=== PATIENT | female | born 1945 | race Caucasian/White ===

== ENCOUNTER 2017-07-23 10:22 | Emergency (ER) | payer MEDICARE ==
[2017-07-23] MEDS ORDERED: SODIUM CHLORIDE 0.9% 500 ML IV STA (10:46)
--- NOTE | 2017-07-23 10:50 | ED ---
General Adult HPI - General Chief complaint: Headache Stated complaint: Headache,Dizziness Time Seen by Provider: 07/23/17 10:37 Source: patient, RN notes reviewed, old records reviewed Mode of arrival: ambulatory Limitations: no limitations - History of Present Illness Initial comments: 72-year-old female with history of hypertension presents for elevated blood pressure. Patient is currently on metoprolol 25 mg twice a day and lisinopril 10 mg twice a day. She states that over the past several weeks she has had complaints of nausea, dizziness and generalized weakness. She has been checking her blood pressure and has had readings as high as 190s systolic. Patient states her episodes of elevated blood pressure are in her mid. She has been taking her pressure on several occasions daily. She does have additional past medical history of being prediabetic and has been complaining of polyuria and increased urinary urgency. Patient had some right-sided upper abdominal and right lateral chest pain several evenings ago which was worse with movement and relieved by repositioning. No other chest pain. She also has had a mild left occipital headache which is worse with movement. No Significant headache at the time my evaluation. No vomiting or diarrhea. She's had some mild nausea. - Related Data Home Medications Medication Instructions Recorded Confirmed Ascorbic Acid [Vitamin C] 1,000 mg PO DAILY 07/23/17 07/23/17 Calcium Carbonate [Calcium] 1,200 mg PO DAILY 07/23/17 07/23/17 Cholecalciferol [Vitamin D3] 5,000 unit PO DAILY 07/23/17 07/23/17 Cyanocobalamin (Vitamin B-12) 1,000 mcg PO DAILY 07/23/17 07/23/17 [Vitamin B-12] Fluticasone Nasal [place] [Flonase 1 spray EA NOSTRIL DAILY PRN 07/23/17 07/23/17 Nasal [place]] Lisinopril [Zestril] 10 mg PO BID 07/23/17 07/23/17 Lisinopril [Zestril] 10 mg PO DAILY PRN 07/23/17 07/23/17 Magnesium Oxide [Sanders] 500 mg PO DAILY 07/23/17 07/23/17 Metoprolol Tartrate 25 mg PO BID 07/23/17 07/23/17 Metoprolol Tartrate [Lopressor] 25 mg PO DAILY@1200 PRN 07/23/17 07/23/17 Super K 1 tab PO DAILY 07/23/17 07/23/17 Allergies Allergy/AdvReac Type Severity Reaction Status Date / Time morphine Allergy Itching Verified 07/23/17 10:29 sulfamethoxazole Allergy Rash/Hives Verified 07/23/17 11:32 [From Bactrim] trimethoprim [From Bactrim] Allergy Rash/Hives Verified 07/23/17 11:32 Review of Systems ROS Statement: Those systems with pertinent positive or pertinent negative responses have been documented in the HPI. ROS Other: All systems not noted in ROS Statement are negative. Past Medical History Past Medical History: Hypertension History of Any Multi-Drug Resistant Organisms: None Reported Past Surgical History: No Surgical Hx Reported Past Psychological History: No Psychological Hx Reported Smoking Status: Never smoker Past Alcohol Use History: Occasional Past Drug Use History: None Reported General Exam Limitations: no limitations General appearance: alert, in no apparent distress Head exam: Present: atraumatic, normocephalic Eye exam: Present: normal appearance, PERRL ENT exam: Present: mucous membranes dry Neck exam: Present: normal inspection, tenderness (Mild left-sided paraspinal cervical tenderness.). Absent: meningismus Respiratory exam: Present: normal lung sounds bilaterally. Absent: respiratory distress, wheezes Cardiovascular Exam: Present: regular rate, normal rhythm GI/Abdominal exam: Present: soft. Absent: distended, tenderness Extremities exam: Present: normal inspection, normal capillary refill. Absent: pedal edema Back exam: Present: normal inspection, full ROM. Absent: tenderness Neurological exam: Present: alert, oriented X3, CN II-XII intact. Absent: motor sensory deficit Psychiatric exam: Present: normal affect, normal mood Skin exam: Present: warm, dry, intact. Absent: cyanosis, diaphoretic Course Vital Signs 07/23/17 10:26 Temperature 98.2 F Pulse Rate 63 Respiratory 20 Rate Blood Pressure 166/84 O2 Sat by Pulse 98 Oximetry Medical Decision Making - Medical Decision Making 72-year-old female presenting for evaluation of elevated blood pressure and a variety of minor complaints. Patient did take 2 of her lisinopril this morning and 2 of her metoprolol, blood pressure is down trending in the emergency department. Exam unremarkable. Laboratory studies including CBC, CMP, urinalysis is all unremarkable. Patient will continue to take 20 mg of lisinopril in the morning and 10 at night. She will maintain her metoprolol dose at 25 twice a day. She is given outpatient primary care physician follow- up. She is request follow-up for [employer] and she had some small amount of vaginal bleeding which is resolved, however she would like to follow-up with a telephone order dispatcher. - Lab Data Result diagrams: 07/23/17 10:57 07/23/17 10:57 Lab Results 07/23/17 07/23/17 07/23/17 Range/Units 10:57 10:57 10:57 WBC 6.5 (3.8-10.6) k/uL RBC 4.61 (3.80-5.40) m/uL Hgb 14.3 (11.4-16.0) gm/dL Hct 41.7 (34.0-46.0) % MCV 90.5 (80.0-100.0) fL MCH 31.1 (25.0-35.0) pg MCHC 34.4 (31.0-37.0) g/dL RDW 12.9 (11.5-15.5) % Plt Count 299 (150-450) k/uL Neutrophils % 52 % Lymphocytes % 37 % Monocytes % 6 % Eosinophils % 2 % Basophils % 1 % Neutrophils # 3.4 (1.3-7.7) k/uL Lymphocytes # 2.4 (1.0-4.8) k/uL Monocytes # 0.4 (0-1.0) k/uL Eosinophils # 0.1 (0-0.7) k/uL Basophils # 0.0 (0-0.2) k/uL PT (9.0-12.0) sec INR (<1.2) APTT (22.0-30.0) sec Sodium 142 (137-145) mmol/L Potassium 5.0 (3.5-5.1) mmol/L Chloride 104 (98-107) mmol/L Carbon Dioxide 26 (22-30) mmol/L Anion Gap 12 mmol/L BUN 17 (7-17) mg/dL Creatinine 0.60 (0.52-1.04) mg/dL Est GFR (CKD-EPI)AfAm >90 (>60 ml/min/1.73 sqM) Est GFR (CKD-EPI)NonAf >90 (>60 ml/min/1.73 sqM) Glucose 95 (74-99) mg/dL Calcium 10.0 (8.4-10.2) mg/dL Magnesium 2.1 (1.6-2.3) mg/dL Total Bilirubin 0.6 (0.2-1.3) mg/dL AST 31 (14-36) U/L ALT 29 (9-52) U/L Alkaline Phosphatase 79 (38-126) U/L Total Creatine Kinase 35 (30-135) U/L CK-MB (CK-2) 0.4 (0.0-2.4) ng/mL CK-MB (CK-2) Rel Index 1.1 Troponin I <0.012 (0.000-0.034) ng/mL Total Protein 7.8 (6.3-8.2) g/dL Albumin 4.7 (3.5-5.0) g/dL Urine Color Urine Appearance (Clear) Urine pH (5.0-8.0) Ur Specific [place] (1.001-1.035) Urine Protein (Negative) Urine Glucose (UA) (Negative) Urine Ketones (Negative) Urine Blood (Negative) Urine Nitrite (Negative) Urine Bilirubin (Negative) Urine Urobilinogen (<2.0) mg/dL Ur Leukocyte Esterase (Negative) 07/23/17 07/23/17 Range/Units 10:57 10:57 WBC (3.8-10.6) k/uL RBC (3.80-5.40) m/uL Hgb (11.4-16.0) gm/dL Hct (34.0-46.0) % MCV (80.0-100.0) fL MCH (25.0-35.0) pg MCHC (31.0-37.0) g/dL RDW (11.5-15.5) % Plt Count (150-450) k/uL Neutrophils % % Lymphocytes % % Monocytes % % Eosinophils % % Basophils % % Neutrophils # (1.3-7.7) k/uL Lymphocytes # (1.0-4.8) k/uL Monocytes # (0-1.0) k/uL Eosinophils # (0-0.7) k/uL Basophils # (0-0.2) k/uL PT 10.1 (9.0-12.0) sec INR 1.0 (<1.2) APTT 22.3 (22.0-30.0) sec Sodium (137-145) mmol/L Potassium (3.5-5.1) mmol/L Chloride (98-107) mmol/L Carbon Dioxide (22-30) mmol/L Anion Gap mmol/L BUN (7-17) mg/dL Creatinine (0.52-1.04) mg/dL Est GFR (CKD-EPI)AfAm (>60 ml/min/1.73 sqM) Est GFR (CKD-EPI)NonAf (>60 ml/min/1.73 sqM) Glucose (74-99) mg/dL Calcium (8.4-10.2) mg/dL Magnesium (1.6-2.3) mg/dL Total Bilirubin (0.2-1.3) mg/dL AST (14-36) U/L ALT (9-52) U/L Alkaline Phosphatase (38-126) U/L Total Creatine Kinase (30-135) U/L CK-MB (CK-2) (0.0-2.4) ng/mL CK-MB (CK-2) Rel Index Troponin I (0.000-0.034) ng/mL Total Protein (6.3-8.2) g/dL Albumin (3.5-5.0) g/dL Urine Color Light Yellow Urine Appearance Clear (Clear) Urine pH 6.5 (5.0-8.0) Ur Specific [place] 1.003 (1.001-1.035) Urine Protein Negative (Negative) Urine Glucose (UA) Negative (Negative) Urine Ketones Negative (Negative) Urine Blood Negative (Negative) Urine Nitrite Negative (Negative) Urine Bilirubin Negative (Negative) Urine Urobilinogen <2.0 (<2.0) mg/dL Ur Leukocyte Esterase Negative (Negative) Disposition Clinical Impression: Hypertension Disposition: HOME SELF-CARE Condition: Good Instructions: Hypertension (ED) Is patient prescribed a controlled substance at d/c from ED?: No Referrals: Nonstaff,Physician [REFERRING] - 1-2 days Ashley Avendaño DO [Doctor of Osteopathic Medicine] - 1-2 days Edward Bennett MD [REFERRING] - 1-2 days Time of Disposition: 12:02
[2017-07-23 11:14] LABS: Basophils % (A) 1 %; Eosinophils # (A) 0.1 k/uL (0-0.7); Eosinophils % (A) 2 %; HCT 41.7 % (34.0-46.0); HGB 14.3 gm/dL (11.4-16.0); Lymphocytes # (A) 2.4 k/uL (1.0-4.8); Lymphocytes % (A) 37 %; MCH 31.1 pg (25.0-35.0); MCHC 34.4 g/dL (31.0-37.0); MCV 90.5 fL (80.0-100.0); Mean Platelet Volume 6.6; Monocytes # (A) 0.4 k/uL (0-1.0); Monocytes % (A) 6 %; Neutrophils # (A) 3.4 k/uL (1.3-7.7); Neutrophils % (A) 52 %; Platelet Count 299 k/uL (150-450); RBC 4.61 m/uL (3.80-5.40); RDW 12.9 % (11.5-15.5); WBC 6.5 k/uL (3.8-10.6)
[2017-07-23 11:16] LABS: Appearance,Urine Clear (Clear); Bilirubin,Urine Negative (Negative); Blood,Urine Negative (Negative); Color,Urine Light Yellow; Glucose,Urine (UA) Negative (Negative); Ketones,Urine Negative (Negative); Leukocyte Esterase,Urine Negative (Negative); Nitrite,Urine Negative (Negative); PH, Urine 6.5 (5.0-8.0); Protein,Urine Negative (Negative); Specific Gravity,Urine 1.003 (1.001-1.035); Urobilinogen,Urine <2.0 mg/dL (<2.0)
[2017-07-23 11:24] LABS: ALT 29 U/L (9-52); AST 31 U/L (14-36); Albumin 4.7 g/dL (3.5-5.0); Alkaline Phosphatase 79 U/L (38-126); Anion Gap 12 mmol/L; Blood Urea Nitrogen 17 mg/dL (7-17); Carbon Dioxide 26 mmol/L (22-30); Chloride 104 mmol/L (98-107); Glucose 95 mg/dL (74-99); Magnesium 2.1 mg/dL (1.6-2.3); Sodium 142 mmol/L (137-145); Total Bilirubin 0.6 mg/dL (0.2-1.3); Total Protein 7.8 g/dL (6.3-8.2)
[2017-07-23 11:25] LABS: Partial Thromboplastin Time 22.3 sec (22.0-30.0); Prothrombin Time 10.1 sec (9.0-12.0)
--- NOTE | 2017-07-23 11:35 | XR ---
EXAMINATION TYPE: XR chest 2V DATE OF EXAM: 07/23/2017 COMPARISON: 07/17/2010 HISTORY: Hypertension and dizziness. TECHNIQUE: Frontal and lateral views of the chest are obtained. FINDINGS: Opacity overlying the right heart border likely relates to the pectus excavatum deformity and right middle lobe atelectasis is seen on the prior exam of 2010. There is no focal air space opac ity, pleural effusion, or pneumothorax seen. The cardiac silhouette size is within normal limits. The osseous structures are intact. IMPRESSION: No acute cardiopulmonary process.
[2017-07-23 11:42] LABS: Creatine Kinase 35 U/L (30-135)
[2017-07-23 11:53] LABS: Creatine Kinase MB 0.4 ng/mL (0.0-2.4); Troponin I <0.012 ng/mL (0.000-0.034)
[2017-07-23 12:16] VITALS: BP 109/60; PULSE 57; RESP 16; TEMP 98.7
== END 2017-07-23 12:19 | disposition home or self-care (01) ==
LOC: EC 10:22 → MERGE 10:22 → EC 12:19
DX: I10 Essential (primary) hypertension (principal); R35.0 Frequency of micturition; Z79.899 Other long term (current) drug therapy; Z88.5 Allergy status to narcotic agent; Z88.2 Allergy status to sulfonamides
CPT/HCPCS: 36415; 71046; 80053; 81003; 82550; 82553; 83735; 84484; 85025; 85610; 85730; 99284

== ENCOUNTER → 2017-07-28 | Outpatient (CLI) | payer MEDICARE ==
[2017-07-28 10:36] VITALS: BP 142/64; PULSE 53; TEMP 96.5; BMI 26.3
--- NOTE | 2017-07-28 12:51 | P.HPOB ---
History of Present Illness H&P Date: 07/28/17 Chief Complaint: Vaginal bleeding after sexual intercourse x one month This is a 72 year old with an LMP of 1998. She has been experiencing light vaginal bleeding after sexual intercourse for one month. She has also been experiencing pain with intercourse. She states it is more uncomfortable on the right side of her pelvis with sexual intercourse. She went to the emergency center last week for evaluation. She states a pelvic examination was not done at that time. The vaginal bleeding is light and typically occurs for about one hour after sexual intercourse. She denies postmenopausal bleeding prior to last month. She did have a D&C at age 52 prior to her menopausal change for abnormal bleeding. She believes a polyp may have been removed around that time. She does use lubrication with intercourse and has done this for many years. The last pelvic exam was at age 66. She lives in [place] during the winter months and lives in [place] during the summer months. Review of Systems Weight has been stable. She denies respiratory, cardiac and G.I. problems. She denies maltreatment or problems with falling. : she denies any significant problems with urinary leakage. She has had postcoital vaginal bleeding for one month as in the HPI. Past Medical History Past Medical History: Hypertension Additional Past Medical History / Comment(s): Osteoporosis, seasonal allergies. Past RN MATERNITY history: she is no history of STDs. History of Any Multi-Drug Resistant Organisms: None Reported Past Surgical History: Bladder Surgery (Bladder suspension), Orthopedic Surgery (Back surgery, wrist, and knee surgery) Additional Past Surgical History / Comment(s): Lucía fundal plication. D&C times 3. Bladder suspension surgery Past Psychological History: No Psychological Hx Reported Smoking Status: Never smoker Past Alcohol Use History: Occasional Past Drug Use History: None Reported Additional History: She's been since 2010 this is her 4th marriage. She was a . She and her live in [place] for 6 months each year and the other 6 months they lives in [place]. She is retired. - Past Family History Mother Family Medical History: Myocardial Infarction (MA) Father Additional Family Medical History / Comment(s): Peptic ulcer disease Medications and Allergies Home Medications Medication Instructions Recorded Confirmed Type Ascorbic Acid [Vitamin C] 1,000 mg PO DAILY 07/23/17 07/28/17 History Calcium Carbonate [Calcium] 1,200 mg PO DAILY 07/23/17 07/28/17 History Cholecalciferol [Vitamin D3] 5,000 unit PO DAILY 07/23/17 07/28/17 History Cyanocobalamin (Vitamin B-12) 1,000 mcg PO DAILY 07/23/17 07/28/17 History [Vitamin B-12] Fluticasone Nasal [place] [Flonase 1 spray EA NOSTRIL DAILY PRN 07/23/17 07/28/17 History Nasal [place]] Lisinopril [Zestril] 10 mg PO BID 07/23/17 07/28/17 History Lisinopril [Zestril] 10 mg PO DAILY PRN 07/23/17 07/28/17 History Magnesium Oxide [Sanders] 500 mg PO DAILY 07/23/17 07/28/17 History Metoprolol Tartrate 25 mg PO BID 07/23/17 07/28/17 History Metoprolol Tartrate [Lopressor] 25 mg PO DAILY@1200 PRN 07/23/17 07/28/17 History Super K 1 tab PO DAILY 07/23/17 07/28/17 History Allergies Allergy/AdvReac Type Severity Reaction Status Date / Time morphine Allergy Itching Verified 07/28/17 10:20 sulfamethoxazole Allergy Rash/Hives Verified 07/28/17 10:20 [From Bactrim] trimethoprim [From Bactrim] Allergy Rash/Hives Verified 07/28/17 10:20 Exam - Vital Signs Vital signs: Vital Signs Temp Pulse BP 07/28/17 10:21 96.5 F L 53 L 142/64 Intake and Output 07/27/17 07/28/17 07/28/17 22:59 06:59 14:59 Other: Weight 76.204 kg Height 5'7", BMI 26.3. This is a well-developed well-nourished white female who is alert and oriented times 3 in no acute distress. HEENT: Within normal limits. NECK: Supple without mass or thyromegaly. CHEST AND LUNGS: Clear to auscultation. HEART: Regular rate and rhythm. BREASTS: deferred BACK: Negative for CVA tenderness. ABDOMEN: Soft, nontender, without palpable masses. PELVIC EXAM: Normal external genitalia with mild atrophy. Cervix and vagina appear normal with mild atrophy. There is no unusual discharge and no blood present. There are no vaginal lacerations.. There is no evidence of prolapse. The uterus is midposition, nongravid size and nontender. There are no palpable adnexal masses. There is mild to moderate right adnexal tenderness noted. RECTAL EXAM: rectal vaginal exam is negative for mass or tenderness and is negative for occult blood. EXTREMITIES: Nontender. IMPRESSION: 1. 72-year-old menopausal female with one month history of postcoital bleeding. Differential diagnosis will include vaginal mucosa tears with sexual intercourse, uterine bleeding which could be caused by endometrial polyps or endometrial neoplasia, cervical bleeding and less likely vulvar bleeding. 2. Right dyspareunia and right pelvic tenderness on exam today. Differential diagnosis will include ovarian cyst, other ovarian neoplasm, pelvic adhesions, uterine pain or non-gynecologic abnormality. PLAN: 1. Pap smear was performed. 2. Pelvic ultrasound will be done today. 3. If endometrial thickness is 4 mm or less, we can consider a small amount of estrogen vaginal cream intravaginally twice-weekly. 4. If adnexal masses found or if abnormal endometrium, consider referral for further evaluation. 5. She had a mammogram done in May 2017 in [place] and was normal per the patient. She will have this done yearly. 6. Have recommended yearly pelvic exams. Total time spent with the patient 40 minutes.
--- NOTE | 2017-07-28 14:18 | US ---
EXAMINATION TYPE: US pelvis complete transvag DATE OF EXAM: 07/28/2017 COMPARISON: NONE CLINICAL HISTORY: R10.2 PELVIC PAIN,R68.89 RT AD. Bleeding after intercourse, pelvic pain TECHNIQUE: Transvaginal (TV) and Transabdominal (TA) . Transabdominal sonographic images of the pel vis were acquired. Transvaginal sonographic images were medically necessary to better assess the fol lowing anatomy: uterus and ovaries Date of LMP: 19 years ago EXAM MEASUREMENTS: Uterus: 5.6 x 2.8 x 3.6 cm Endometrial Stripe: 0.3 cm Right Ovary: unable to visualize Left Ovary: unable to visualize 1. Uterus: Anteverted heterogeneous with hypoechoic area posterior body = 0.4 x 0.3 x 0.4cm 2. Endometrium: difficult to visualize due to heterogenous myometrium, appears to have small amount of fluid within 3. Right Ovary: Obscured by overlying bowel gas 4. Left Ovary: Obscured by overlying bowel gas 5. Bilateral Adnexa: peristalsing bowel right adnexa 6. Posterior cul-de-sac: wnl IMPRESSION: 1. Thinned endometrium with small amount of intraendometrial fluid, which can be seen in atrophy. How ever recommendation remains for direct visualization or sonohysterogram in a patient with postmenopau joanne bleeding. 2. Nonvisualization of the ovaries, possibly due to ovarian atrophy.
--- NOTE | 2017-07-28 14:25 | P.PN ---
Progress Note - Text Progress Note Date: 07/28/17 OUTPATIENT FOLLOW-UP NOTE TEST(S)/RESULTS: pelvic ultrasound done today was reviewed with Dr. Pink. No adnexal masses were noted. There was not signs of endometrial thickening, but small amount of endometrial fluid was noted. METHOD OF NOTIFICATION: the patient was notified of these results by phone. PATIENT COMMENTS: the patient understands the findings. DIAGNOSIS: postcoital bleeding with small endometrial fluid on ultrasound. DISCUSSION: I have recommended direct visualization with hysteroscopy and D&C for tissue sampling. The patient is declining this at this time, and as an alternative we discussed endometrial biopsy. She understands that this could be used to try to detect abnormal cells, but may not be efficient at removing an endometrial polyp. The patient understands this and would prefer to proceed with the endometrial biopsy. PLAN: endometrial biopsy will be scheduled for 08/04/2017. She understands that if she has persistent postmenopausal bleeding, I would recommend referral for hysteroscopy and D&C.
== END | disposition home or self-care (01) ==
LOC: WWCWWP 09:34 → MERGE 10:00
PROVIDERS: ATTEND Obstetrics & Gynecology
DX: N95.0 Postmenopausal bleeding (principal); N85.8 Other specified noninflammatory disorders of uterus; R10.2 Pelvic and perineal pain
CPT/HCPCS: 76830; 76856

== ENCOUNTER → 2017-08-04 | Outpatient (CLI) | payer MEDICARE ==
[2017-08-04 12:51] VITALS: BP 136/74; PULSE 63; RESP 18; TEMP 96.7; BMI 27.2
--- NOTE | 2017-08-04 13:31 | P.PCN ---
Date of Procedure: 08/04/17 Preoperative Diagnosis: Post-coital postmenopausal bleeding, small endometrial fluid by ultrasound Postoperative Diagnosis: Same Procedure(s) Performed: Endometrial biopsy Anesthesia: none Surgeon: Bang Martin Estimated Blood Loss (ml): 0 Pathology: other (Endometrial tissue) Condition: stable Disposition: same day Indications for Procedure: This was a 72-year-old female who presented because of postcoital vaginal bleeding which was light. This has happened on several occasions. Pelvic ultrasound showed a small amount of fluid within the endometrial cavity without endometrial thickening. Operative Findings: The uterus is non-gravid size. The cervix appears normal with mild atrophy. There are no palpable adnexal masses or tenderness. The uterus sounded to 5.5 cm. Scant tissue and a small amount (<1cc) of clear fluid was noted. Description of Procedure: The endometrial biopsy procedure was described to the patient. All of her questions were answered. The patient was placed in the lithotomy position. Bimanual examination was performed. The uterus is mid positioned and is nongravid size. The speculum was inserted and the cervix and vagina were prepped with betadine solution. A single toothed tenaculum was used to grasp the anterior lip of the cervix. The 3mm endometrial biopsy curette was placed to the fundus without difficulty. The uterus sounded to 5.5cm. A back-and- forth rotating motion was used and a scant amount of tissue and <1cc of clear fluid was obtained and sent for pathological examination. The patient tolerated the procedure well. There were no complications. The post procedure vitals are as follows: blood pressure 160/75. pulse 57, temperature 96.5. Post procedure instructions were given to the patient.
--- NOTE | 2017-08-04 13:34 | P.PN ---
Progress Note - Text Progress Note Date: 08/04/17 The patient was notified of her normal Pap smear test results done on 2017. This was done in person.
== END | disposition home or self-care (01) ==
LOC: WWCWWP 11:42
PROVIDERS: ATTEND Obstetrics & Gynecology
DX: N95.0 Postmenopausal bleeding (principal)
CPT/HCPCS: 88305